=== PATIENT | male | born 1985 | race Two or more races ===

== ENCOUNTER 2021-06-02 10:21 | Emergency (ER) | payer OTHER ==
[~2021-06-02] VITALS: Ht 172.7 cm; Wt 99.8 kg
[2021-06-02] MEDS ORDERED: COLLAGEN HYDROLY1 GM PO (10:38)
[2021-06-02] MEDS ORDERED: ZITHROMAX TRI-500 MG PO (13:44)
[2021-06-02] MEDS ORDERED: FLONASE ALLERG9.9 ML NASAL (13:44)
== END 2021-06-02 13:47 ==
LOC: ER 10:21
DX: J32.0 Chronic maxillary sinusitis (principal); J06.9 Acute upper respiratory infection, unspecified; Z03.818 Encounter for observation for suspected exposure to other biological agents ruled out

== ENCOUNTER 2022-05-02 19:13 | Emergency (ER) | payer OTHER ==
[~2022-05-02] VITALS: Ht 170.2 cm; Wt 103.0 kg
[~2022-05-02 19:13] MED LIST: COLLAGEN HYDROLY1 GM PO; FLONASE ALLERG9.9 ML NASAL; ZITHROMAX TRI-500 MG PO
[2022-05-02] MEDS ORDERED: ORPHENADRINE C100 MG PO (23:45)
[2022-05-02] MEDS ORDERED: SKELAGESIC PO (23:45)
== END 2022-05-02 23:54 ==
LOC: ER 19:13
DX: M54.50 Low back pain, unspecified (principal); Z88.6 Allergy status to analgesic agent

== ENCOUNTER 2022-06-26 07:16 | Emergency (ER) | payer OTHER ==
[~2022-06-26] VITALS: Ht 170.2 cm; Wt 103.0 kg
[~2022-06-26 07:16] MED LIST changes: +ORPHENADRINE C100 MG PO; +SKELAGESIC PO
== END 2022-06-26 12:05 | disposition home or self-care (01) ==
LOC: ER 07:16
DX: B34.9 Viral infection, unspecified (principal); Z20.822 Contact with and (suspected) exposure to COVID-19; Z88.2 Allergy status to sulfonamides; Z88.6 Allergy status to analgesic agent

== ENCOUNTER 2023-09-07 10:30 | Emergency (ER) | payer OTHER ==
[~2023-09-07] VITALS: Ht 170.2 cm; Wt 99.8 kg
[2023-09-07] MEDS ORDERED: ACETAMINOPHEN 500 MG GEL..CAP PO ONE (13:30)
[2023-09-07] MEDS ORDERED: DEXAMETHASONE SODIUM PHOSPHATE 4 MG/ML VIAL IM ONE (13:30)
[2023-09-07 14:28] LABS: HEMATOCRIT 44.6 % (39.0-48.0); HEMOGLOBIN 15.7 g/dL (13-16.00); MEAN CELL VOLUME 87.3 fL (80.0-100.00); MEAN CORPUSCULAR HEMOGLOBIN 30.8 pg (27.00-32.0); MEAN CORPUSCULAR HGB CONC 35.3 g/dl (32.0-36.0); PLATELET COUNT 186 K/uL (150-450); RED CELL DISTRIBUTION WIDTH 13.2 % (11.5-14.5)
[2023-09-07] MEDS ORDERED: OSELTAMIVIR PHO75 MG PO (15:37)
[2023-09-07] MEDS ORDERED: TYLENOL325 MG PO (16:00)
== END 2023-09-07 16:11 | disposition home or self-care (01) ==
LOC: ER 10:30
PROVIDERS: General Practice
DX: J10.1 Influenza due to other identified influenza virus with other respiratory manifestations (principal); Z20.822 Contact with and (suspected) exposure to COVID-19; Z88.6 Allergy status to analgesic agent; Z88.2 Allergy status to sulfonamides